=== PATIENT | male | born 1990 | race Caucasian/White ===

== ENCOUNTER 2023-01-11 00:21 | Emergency (ER) | payer MEDICAID, OTHER ==
[~2023-01-11] VITALS: Ht 182.9 cm; Wt 72.7 kg
[~2023-01-11 00:21] MED LIST: NO HOME MEDS
[2023-01-11 00:24] VITALS: BP 119/73
[2023-01-11] MEDS ORDERED: iohexol 350MG/ML 100ml bottle IV ONE (00:47)
--- NOTE | 2023-01-11 00:50 | NUR ---
CHARTING DONE UNDER REJI VAZQUEZ ERRONEOUSLY. THIS RN CHARTED ON THE PT
--- NOTE | 2023-01-11 01:02 | NUR ---
pt to ct
== END 2023-01-11 02:07 ==
LOC: ER 00:22 → EEVIPCON 00:22 → ER 02:07
DX: T71.162A Asphyxiation due to hanging, intentional self-harm, initial encounter (principal); Z88.5 Allergy status to narcotic agent; Z79.899 Other long term (current) drug therapy
CPT/HCPCS: 70496; 70498; 99285; J3490; Q9967